=== PATIENT | male | born 1995 | race Caucasian/White ===

== ENCOUNTER 2019-01-14 07:58 | Outpatient (CLI) | payer BC ==
--- NOTE | 2019-01-14 08:48 | CT ---
CT IAC/TEMPORAL BONE WITHOUT CONTRAST: HISTORY: Conductive hearing loss, right side. Multiple ear infections and ruptured eardrum. Preoperative exam. COMPARISON: None. FINDINGS: The visualized brain parenchyma and orbital apices are unremarkable. Visualized paranasal sinuses of appropriate aeration. Right IAC/temporal bone: The internal auditory canal, cochlea, vestibule and semicircular canals have an appropriate appearance and configuration. The vestibular aqueduct is not enlarged. Adequate aeration of the middle ear. Ossicular chain is intact. Stapedial footplate is appropriately located. Preserved tegmen tympani and tegmen mastoideum. No significant hypodensities in Prussak's space. Scutum is sharp. Adequate aeration of the mastoid air cells. Preserved osseous septae. Slightly thick ened and retracted right tympanic membrane with questionable perforation along the superior aspect of the tympanic membrane. External auditory canal appears to be patent. Left IAC/temporal bone: The internal auditory canal, cochlea, vestibule and semicircular canals have an appropriate appearance and configuration. Vestibular aqueduct is not enlarged. Stapedial footplate is appropriately located. Adequate aeration of the middle ear. Preserved tegmen tympani and tegmen mastoideum. Scutum is sharp. No abnormal hypodensities Prussak's space. Adequate aeration of the mastoid air cells. Osseous septae are preserved. Left tympanic membrane and external auditory canal are unremarkable, IMPRESSION: Mild thickening and retraction, along with possible perforation of the right tympanic membrane. Other powers, unremarkable exam. Transcribed Date/Time: 01/14/2019 9:10 AM
== END 2019-01-14 07:59 | disposition home or self-care (01) ==
LOC: CT 07:58
PROVIDERS: ATTEND Otolaryngology Otology & Neurotology
DX: H90.2 Conductive hearing loss, unspecified (principal); H73.891 Other specified disorders of tympanic membrane, right ear
CPT/HCPCS: 70480

== ENCOUNTER 2021-07-19 14:07 | Outpatient (CLI) | payer OTHER | END 2021-07-19 14:08 | disposition home or self-care (01) | LOC: CTENTCT 14:07 | PROVIDERS: ATTEND Otolaryngology Otology & Neurotology | DX: J32.9 Chronic sinusitis, unspecified (principal) | CPT/HCPCS: 70486 ==